=== PATIENT | female | born 1990 | race Caucasian/White ===

== ENCOUNTER 2017-05-16 07:52 | Outpatient (CLI) | payer OTHER ==
--- NOTE | 2017-05-16 09:56 | Ultrasound Report ---
ULTRASOUND RENAL BILATERAL HISTORY: Hypertension. TECHNIQUE: transabdominal ultrasound with color Doppler interrogation. FINDINGS: The right kidney measures 11.6cm. Right renal cortex: 1.3cm. The left kidney measures 11.3cm. Left renal cortex: 1.7cm. Scans of the kidneys show normal renal contours. There is normal central calyceal clustering and good preservation of the cortical thickness. There is no evidence of mass or hydronephrosis. The views of the bladder and the region of the ureters appear normal. IMPRESSION: Unremarkable renal ultrasound.
== END 2017-05-16 07:53 | disposition home or self-care (01) ==
LOC: US 07:52
PROVIDERS: ATTEND Family Medicine
DX: I10 Essential (primary) hypertension (principal)
CPT/HCPCS: 76770

== ENCOUNTER 2019-01-26 07:56 | Emergency (ER) | payer OTHER ==
[2019-01-26 08:05] VITALS: BP 153/96
[2019-01-26 08:59] LABS: Bilirubin,Urine NEG (Negative); Blood,Urine LG (Negative); Color,Urine Red (Yellow); Urobilinogen,Urine < 2.0 mg/dL (<2.0)
[2019-01-26 09:05] LABS: RBC,Urine > 182.0 /HPF (0.0-6.0)
--- NOTE | 2019-01-26 09:40 | Emergency Department Report ---
ED Female HPI - General Chief complaint: Urogenital-Female Stated complaint: BLOOD IN URINE Time Seen by Provider: 01/26/19 08:59 Source: patient Mode of arrival: Ambulatory Limitations: No Limitations - History of Present Illness Initial comments: This is a 28-year-old female who presents to the emergency room with hematuria and pelvic pressure intermittently for 2 weeks. Past medical history of hypertension. Her last menstrual period was 01/26/2019, A0. Patient reports symptoms initially started with pelvic pressure and pain. Patient states she has some leftover Bactrim which she took for 3 days which improved pain but continues to have hematuria for the past 2 days. She denies vaginal discharge, back pain, fever, urinary frequency, urgency, or dysuria. MD Complaint: other (hematuria) Onset/Timin -: week(s) Location: suprapubic Radiation: non-radiating Severity scale (0 -10): 0 Quality: other (pressure) Consistency: intermittent Improves with: none Worsens with: urination Are you Now?: No Last Menstrual Period: 01/26/19 EDC: 11/02/19 Associated Symptoms: denies other symptoms - Related Data Sexually active: Yes : 3 Para: 3 A: 0 Previous Rx's Medication Instructions Recorded Last Taken Type Nitrofurantoin [place]/M-Cryst 100 mg PO Q12HR #10 capsule 01/26/19 Unknown Rx [Macrobid CAP] Allergies Allergy/AdvReac Type Severity Reaction Status Date / Time No Known Allergies Allergy Unverified 05/16/17 07:52 ED Review of Systems ROS: Stated complaint: BLOOD IN URINE Other details as noted in HPI Constitutional: denies: chills, fever Respiratory: denies: cough, shortness of breath, wheezing Cardiovascular: denies: chest pain, palpitations Gastrointestinal: abdominal pain. denies: nausea, diarrhea Genitourinary: hematuria. denies: urgency, dysuria, discharge Musculoskeletal: denies: back pain, joint swelling, arthralgia Skin: denies: rash, lesions Neurological: denies: headache, weakness, paresthesias Psychiatric: denies: anxiety, depression ED Past Medical Hx - Past Medical History Previous Medical History?: Yes Hx Hypertension: Yes - Surgical History Past Surgical History?: Yes Additional Surgical History: left shoulder surgery. Tubal ligation - Social History Smoking Status: Never Smoker Substance Use Type: Marijuana - Medications Home Medications: Home Medications Medication Instructions Recorded Confirmed Last Taken Type Nitrofurantoin [place]/M-Cryst 100 mg PO Q12HR #10 capsule 01/26/19 Unknown Rx [Macrobid CAP] ED Physical Exam - General Limitations: No Limitations General appearance: alert, in no apparent distress - Respiratory Respiratory exam: Present: normal lung sounds bilaterally. Absent: respiratory distress - Cardiovascular Cardiovascular Exam: Present: regular rate, normal rhythm. Absent: systolic murmur, diastolic murmur, rubs, gallop - GI/Abdominal GI/Abdominal exam: Present: soft, normal bowel sounds. Absent: distended, tenderness, guarding, rebound, rigid, organomegaly - Back Exam Back exam: Absent: CVA tenderness (R), CVA tenderness (L) - Neurological Exam Neurological exam: Present: alert, oriented X3, normal gait - Psychiatric Psychiatric exam: Present: normal affect, normal mood - Skin Skin exam: Present: warm, dry, intact, normal color. Absent: rash ED Course Vital Signs 01/26/19 08:02 Temperature 98.6 F Pulse Rate 92 H Respiratory 19 Rate Blood Pressure 153/96 [Left] O2 Sat by Pulse 100 Oximetry ED Medical Decision Making - Lab Data Lab Results 01/26/19 01/26/19 Range/Units 08:41 09:59 Urine Color Red (Yellow) Urine Turbidity Slightly-cloudy (Clear) Urine pH 6.0 (5.0-7.0) Ur Specific [place] 1.010 (1.003-1.030) Urine Protein 30 mg/dl (Negative) mg/dL Urine Glucose (UA) Neg (Negative) mg/dL Urine Ketones Neg (Negative) mg/dL Urine Blood Lg (Negative) Urine Nitrite Neg (Negative) Urine Bilirubin Neg (Negative) Urine Urobilinogen < 2.0 (<2.0) mg/dL Ur Leukocyte Esterase Mod (Negative) Urine WBC (Auto) 17.0 H (0.0-6.0) /HPF Urine RBC (Auto) > 182.0 (0.0-6.0) /HPF U Epithel Cells (Auto) 4.0 (0-13.0) /HPF Urine HCG, Qual Negative (Negative) - Medical Decision Making This is a 28-year-old -[place] female who presents with hematuria and pelvic pressure intermittently for 2 week. Patient was examined by me. Vitals are stable and in no acute distress. A urinalysis and urine test was obtained. Start macrobid for acute cystitis. Discharged home in stable c ondition. Discussed prevention options. F/U with PCP or Health Department. Critical care attestation.: If time is entered above; I have spent that time in minutes in the direct care of this critically ill patient, excluding procedure time. ED Disposition Clinical Impression: UTI symptoms Hematuria Qualifiers: Hematuria type: benign essential microscopic Qualified Code(s): R31.1 - Benign essential microscopic hematuria Disposition: TO HOME OR SELFCARE Is pt being admited?: No Does the pt Need Aspirin: No Condition: Stable Instructions: Urinary Tract Infection in Women (ED) Prescriptions: Nitrofurantoin [place]/M-Cryst [Macrobid CAP] 100 mg PO Q12HR #10 capsule [facility]: [facility] [Primary Care Provider] - 3-5 Days [facility] [place] [Outside] - 3-5 Days [facility] [Outside] - 3-5 Days Forms: Work/School Release Form(ED) Time of Disposition: 11:31
[2019-01-26 10:14] LABS: HCG Qualitative,Urine Negative (Negative)
== END 2019-01-26 11:37 | disposition home or self-care (01) ==
LOC: ED 07:56
DX: R31.9 Hematuria, unspecified (principal); R10.2 Pelvic and perineal pain; I10 Essential (primary) hypertension; F12.10 Cannabis abuse, uncomplicated; Z98.51 Tubal ligation status; Z98.890 Other specified postprocedural states
CPT/HCPCS: 81001; 81025; 87086; 99282

== ENCOUNTER 2019-04-17 16:49 | Emergency (ER) | payer OTHER ==
[2019-04-17 17:03] VITALS: BP 145/97
--- NOTE | 2019-04-17 17:04 | Event Note ---
ED Screening Note Date of service: 04/17/19 Time: 17:01 ED Screening Note: This is a 28 y.o. F. that presents to the ER with sensation of something stuck in her throat. Patient reports tender pain in throat for months. She followed up with PCP with no answer. Taking NSAIDs with no improvement of symptoms. This initial assessment/diagnostic orders/clinical plan/treatment(s) is/are subject to change based on patients health status, clinical progression and re- assessment by fellow clinical providers in the ED. Further treatment and workup at subsequent clinical providers discretion. Patient/guardian urged not to elope from the ED as their condition may be serious if not clinically assessed and managed. Initial orders include: XR soft tissue of neck
--- NOTE | 2019-04-17 17:46 | XRay Report ---
EXAMINATION: Soft tissue neck radiograph, 2 views, 04/17/2019 CLINICAL INFORMATION: Evaluate for foreign body COMPARISON: None. FINDINGS: There is normal alignment of the cervical vertebral bodies with mild bony degenerative estrada ge. Vertebral body height is well maintained. There is no evidence of prevertebral soft tissue swelli ng. No definite radiodense foreign body is identified. IMPRESSION: No evidence of radiodense foreign body. Please correlate with patient's clinical circumst ances. Signer Name: Vanna Jeffrey MD Signed: 04/17/2019 5:42 PM Workstation Name: [id number]
--- NOTE | 2019-04-17 18:29 | Emergency Department Report ---
ED General Adult HPI - General Chief complaint: Sore Throat Stated complaint: THROAT PAIN Time Seen by Provider: 04/17/19 17:00 Source: patient Mode of arrival: Ambulatory Limitations: No Limitations - History of Present Illness Initial comments: 28 y/o F presenting with CC neck pain, ongoing for 7 months States she has pain in L anterior neck and at times near R mastoid, especially with movements Also reports intermittent vomiting for same amount of time as well as weight loss. No CP, SOB, abd pain, diarrhea Saw PCP a few months ago who did labs which were normal -: Gradual, month(s) (7) Location: neck Radiation: non-radiation Severity scale (0 -10): 5 Quality: aching Consistency: intermittent Improves with: immobilization Worsens with: movement (and sometimes swallowing) Associated Symptoms: nausea/vomiting Treatments Prior to Arrival: none - Related Data Previous Rx's Medication Instructions Recorded Last Taken Type Nitrofurantoin Graves/M-Cryst 100 mg PO Q12HR #10 capsule 01/26/19 Unknown Rx [Macrobid CAP] Cyclobenzaprine [Flexeril] 10 mg PO TID PRN #15 tablet 04/17/19 Unknown Rx Promethazine [Phenergan] 25 mg PO Q6HR PRN #12 tab 04/17/19 Unknown Rx Allergies Allergy/AdvReac Type Severity Reaction Status Date / Time No Known Allergies Allergy Unverified 05/16/17 07:52 ED Review of Systems ROS: Stated complaint: THROAT PAIN Other details as noted in HPI Comment: All other systems reviewed and negative ENT: as per HPI ED Past Medical Hx - Past Medical History Previous Medical History?: Yes Hx Hypertension: Yes - Surgical History Past Surgical History?: Yes Additional Surgical History: left shoulder surgery. Tubal ligation - Social History Smoking Status: Never Smoker Substance Use Type: Marijuana - Medications Home Medications: Home Medications Medication Instructions Recorded Confirmed Last Taken Type Nitrofurantoin Graves/M-Cryst 100 mg PO Q12HR #10 capsule 01/26/19 Unknown Rx [Macrobid CAP] Cyclobenzaprine [Flexeril] 10 mg PO TID PRN #15 tablet 04/17/19 Unknown Rx Promethazine [Phenergan] 25 mg PO Q6HR PRN #12 tab 04/17/19 Unknown Rx ED Physical Exam - General Limitations: No Limitations General appearance: alert, in no apparent distress - Head Head exam: Present: atraumatic, normocephalic - Eye Eye exam: Present: normal appearance, PERRL, EOMI. Absent: nystagmus Pupils: Present: normal accommodation - ENT ENT exam: Present: normal exam, normal orophraynx, mucous membranes moist - Neck Neck exam: Present: normal inspection, tenderness (over SCM muscle (upper part) on R), full ROM. Absent: meningismus, lymphadenopathy, thyromegaly - Respiratory Respiratory exam: Present: normal lung sounds bilaterally. Absent: respiratory distress - Cardiovascular Cardiovascular Exam: Present: regular rate, normal rhythm. Absent: systolic murmur, diastolic murmur, rubs, gallop - GI/Abdominal GI/Abdominal exam: Present: soft, normal bowel sounds. Absent: distended, tenderness, guarding, rebound - Extremities Exam Extremities exam: Present: normal inspection - Back Exam Back exam: Present: normal inspection - Neurological Exam Neurological exam: Present: alert, oriented X3, CN II-XII intact, normal gait, reflexes normal. Absent: motor sensory deficit - Psychiatric Psychiatric exam: Present: normal affect, normal mood - Skin Skin exam: Present: warm, dry, intact, normal color. Absent: rash ED Course Vital Signs 04/17/19 17:00 Temperature 98.7 F Pulse Rate 110 H Respiratory 18 Rate Blood Pressure 145/97 [Left] O2 Sat by Pulse 98 Oximetry ED Medical Decision Making - Radiology Data Radiology results: report reviewed negative soft tissue neck - Medical Decision Making Pt presenting with chronic complaints including 7 month hx of neck pain and sometimes pain with swallowing. She has an overall benign exam, is well appearing, nontoxic, with normal vitals (HR 80s on my exam). I have advised her that these ongoing symptoms would be better evaluated by her PCP on an OP basis. A plain film soft tissue neck ordered at triage is unremarkable. She verbalized understanding and agreed to make an appointment to see her PCP. She did lose her father this past year and it is possible that some of her symptoms are anxiety and depression driven, however she understands this is a diagnosis of exclusion. - Differential Diagnosis muscle pain, gastritis, malignancy Critical care attestation.: If time is entered above; I have spent that time in minutes in the direct care of this critically ill patient, excluding procedure time. ED Disposition Clinical Impression: Neck pain Vomiting Qualifiers: Vomiting type: unspecified Vomiting Intractability: non-intractable Nausea presence: unspecified Qualified Code(s): R11.10 - Vomiting, unspecified Disposition: TO HOME OR SELFCARE Is pt being admited?: No Condition: Good Instructions: Muscle Strain (ED) Prescriptions: Cyclobenzaprine [Flexeril] 10 mg PO TID PRN #15 tablet PRN Reason: Muscle Spasm Promethazine [Phenergan] 25 mg PO Q6HR PRN #12 tab PRN Reason: Nausea Referrals: FRANCE CASILLAS MD [Staff Physician] - 3-5 Days Time of Disposition: 18:30
== END 2019-04-17 19:08 | disposition home or self-care (01) ==
LOC: ED 16:49
DX: M54.2 Cervicalgia (principal); R11.2 Nausea with vomiting, unspecified; R13.10 Dysphagia, unspecified; I10 Essential (primary) hypertension; F12.10 Cannabis abuse, uncomplicated; Z98.890 Other specified postprocedural states; Z98.51 Tubal ligation status; Z79.899 Other long term (current) drug therapy
CPT/HCPCS: 70360